=== PATIENT | male | born 1985 | race Caucasian/White ===

== ENCOUNTER 2017-10-05 17:28 | Emergency (ER) | payer MEDICAID, OTHER ==
[2017-10-05] MEDS: MOXIFLOXACIN 0.5% 3 ML OPH RIGHT EYE (18:33)
== END 2017-10-05 19:14 | disposition home or self-care (01) ==
LOC: FTE 17:28
DX: T15.01XA Foreign body in cornea, right eye, initial encounter (principal); X58.XXXA Exposure to other specified factors, initial encounter; Y92.9 Unspecified place or not applicable
CPT/HCPCS: 65220; 99284-25

== ENCOUNTER 2017-11-05 16:44 | Emergency (ER) | payer MEDICAID ==
[2017-11-05] MEDS: TETRACAINE 0.5% 4 ML OPH RIGHT EYE (18:59)
[2017-11-05] MEDS: FLUORESCEIN STRIP LEFT EYE (18:59)
== END 2017-11-05 19:30 | disposition home or self-care (01) ==
LOC: FTE 16:44
DX: H57.12 Ocular pain, left eye (principal)
CPT/HCPCS: 99283; Z7502